=== PATIENT | male | born 1945 | race African-American/Black ===

== ENCOUNTER → 2017-01-15 | Outpatient (CLI) | payer OTHER ==
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
[2017-01-15 17:26] LABS: POC - CREATININE 1.35 mg/dL (0.64-1.27); POC - GFR >60.0 mL/min (>60)
== END | disposition home or self-care (01) ==
LOC: CMRI 16:37
PROVIDERS: Ophthalmology
DX: H49.01 Third [oculomotor] nerve palsy, right eye (principal)
CPT/HCPCS: 70543; 70544; 70553; 82565; A9577